=== PATIENT | female | born 1985 | race American Indian/Alaskan Native ===

== ENCOUNTER 2018-04-03 21:21 | Emergency (ER) | payer SELFPAY ==
[2018-04-03 21:47] VITALS: BP 112/73
--- NOTE | 2018-04-03 22:29 | XRay Report ---
FINAL REPORT EXAM: XR ANKLE 2V LT HISTORY: fall/L Ankle swollen painful TECHNIQUE: Frontal and lateral views left ankle FINDINGS: There is no evidence of fracture or subluxation on two views provided. There is soft tissue swelling on the lateral and anterior aspect of the ankle. IMPRESSION: 1. Soft tissue swelling without evidence of fracture or subluxation.
== END 2018-04-04 01:31 | disposition left against medical advice (07) ==
LOC: ED 21:21
DX: M25.572 Pain in left ankle and joints of left foot (principal); Z53.21 Procedure and treatment not carried out due to patient leaving prior to being seen by health care provider

== ENCOUNTER 2018-11-12 09:18 | Emergency (ER) | payer MEDICAID ==
[2018-11-12] MEDS ORDERED: ASPIRIN PO ONE (09:46)
--- NOTE | 2018-11-12 10:22 | XRay Report ---
AP CHEST: HISTORY: chest pain AP view of the chest demonstrates a normal mediastinal and cardiac contour with clear lungs and normal bony and soft tissue structures. IMPRESSION: Unremarkable AP chest.
[2018-11-12 10:24] LABS: Basophils # (Auto) 0.1 K/mm3 (0.0-0.1); Basophils % (Auto) 0.6 % (0.0-1.8); Eosinophils # (Auto) 0.3 K/mm3 (0.0-0.4); Eosinophils % (Auto) 2.9 % (0.0-4.3); Hematocrit 44.6 % (30.3-42.9); Hemoglobin 14.9 gm/dl (10.1-14.3); Lymphocytes # (Auto) 2.5 K/mm3 (1.2-5.4); Lymphocytes % (Auto) 24.9 % (13.4-35.0); Mean Corpuscular HGB Conc 34 % (30-34); Mean Corpuscular Volume 88 fl (79-97); Monocytes # (Auto) 0.7 K/mm3 (0.0-0.8); Monocytes % (Auto) 7.3 % (0.0-7.3); Platelet Count 228 K/mm3 (140-440); Red Blood Count 5.09 M/mm3 (3.65-5.03); Red Cell Distribution Width 14.6 % (13.2-15.2)
[2018-11-12 10:35] LABS: BUN/Creatinine Ratio 12; Blood Urea Nitrogen 6 mg/dL (7-17); Calcium 8.4 mg/dL (8.4-10.2); Hemolysis Index 70
[2018-11-12 11:10] VITALS: BP 110/72
--- NOTE | 2018-11-12 12:40 | Emergency Department Report ---
ED Chest Pain HPI - General Chief Complaint: Chest Pain Stated Complaint: CHEST PAIN/RT ARM/LFT ARM PAIN Time Seen by Provider: 11/12/18 09:55 Source: patient Mode of arrival: Ambulatory Limitations: No Limitations - History of Present Illness Initial Comments: Mrs. Spear is a healthy 33-year-old female with history of tachycardia status post cardiac ablation who presents with diffuse body aches over the last 3 weeks. Pain began entire upper back then muscle aches and joint pain. Today she felt a jolt across her chest lasting one to 2 seconds. Is concerned about her heart. Pain was brief. She denies any shortness of breath. Denies any fev er. She is symptom-free at this point. Does have a history of previous tachycardia. She does have a history of tobacco abuse. MD Complaint: chest pain -: Sudden Onset: during rest Pain Location: substernal Severity: mild Severity scale (0 -10): 6 Quality: sharp Consistency: now resolved Improves With: nothing Worsens With: nothing - Related Data Allergies Allergy/AdvReac Type Severity Reaction Status Date / Time No Known Allergies Allergy Unverified 04/03/18 21:47 Heart Score - HEART Score History: Slightly suspicious EKG: Normal Age: < 45 Risk factors: 1-2 risk factors Troponin: < normal limit HEART Score: 1 ED Review of Systems ROS: Stated complaint: CHEST PAIN/RT ARM/LFT ARM PAIN Other details as noted in HPI Comment: All other systems reviewed and negative Constitutional: denies: fever, malaise Respiratory: denies: cough Cardiovascular: chest pain ED Past Medical Hx - Past Medical History Previous Medical History?: No - Surgical History Past Surgical History?: Yes Additional Surgical History: Cardiac ablation 2016 - Social History Smoking Status: Current Every Day Smoker Substance Use Type: Alcohol ED Physical Exam - General Limitations: No Limitations General appearance: alert, in no apparent distress - Head Head exam: Present: atraumatic, normocephalic - Eye Eye exam: Present: normal appearance - ENT ENT exam: Present: mucous membranes moist - Neck Neck exam: Present: normal inspection, full ROM - Respiratory Respiratory exam: Present: normal lung sounds bilaterally. Absent: respiratory distress, wheezes, rales, rhonchi - Cardiovascular Cardiovascular Exam: Present: regular rate, normal rhythm, normal heart sounds. Absent: systolic murmur, diastolic murmur, rubs, gallop - GI/Abdominal GI/Abdominal exam: Present: soft, normal bowel sounds. Absent: distended, tenderness, guarding, rebound - Extremities Exam Extremities exam: Present: normal inspection - Back Exam Back exam: Present: normal inspection - Neurological Exam Neurological exam: Present: alert, oriented X3 - Psychiatric Psychiatric exam: Present: normal affect, normal mood - Skin Skin exam: Present: warm, dry, intact, normal color. Absent: rash ED Course Vital Signs 11/12/18 11/12/18 11/12/18 09:39 10:11 10:15 Temperature 98.2 F Pulse Rate 103 H 84 78 Respiratory 16 14 16 Rate Blood Pressure 110/72 Blood Pressure 161/107 [Left] O2 Sat by Pulse 98 98 98 Oximetry 11/12/18 11/12/18 11/12/18 10:30 10:45 11:01 Temperature Pulse Rate 71 76 69 Respiratory 19 15 13 Rate Blood Pressure 105/63 96/50 110/72 Blood Pressure [Left] O2 Sat by Pulse 98 97 100 Oximetry ED Medical Decision Making - Lab Data Result diagrams: 11/12/18 09:54 11/12/18 09:51 Laboratory Results - last 24 hr 11/12/18 11/12/18 09:51 09:54 WBC 9.9 RBC 5.09 H Hgb 14.9 H Hct 44.6 H MCV 88 MCH 29 MCHC 34 RDW 14.6 Plt Count 228 Lymph % (Auto) 24.9 Catron % (Auto) 7.3 Eos % (Auto) 2.9 Baso % (Auto) 0.6 Lymph # 2.5 Catron # 0.7 Eos # 0.3 Baso # 0.1 Seg Neutrophils % 64.3 Seg Neutrophils # 6.4 Sodium 135 L Potassium 4.3 Chloride 101.9 Carbon Dioxide 23 Anion Gap 14 BUN 6 L Creatinine 0.5 L Estimated GFR > 60 BUN/Creatinine Ratio 12 Glucose 109 H Calcium 8.4 Troponin T < 0.010 - EKG Data -: EKG Interpreted by Me EKG shows normal: sinus rhythm, axis, intervals, QRS complexes, ST-T waves Rate: normal - Medical Decision Making Mrs. Gross presents with chest pain brief, suspected ectopy such as PVC. No indication of pulmonary embolism. PERC Negative. EKG chest x-ray labs all within normal limits. Given reassurance. Strongly recommended cessation of smoking. Discharged home. Critical care attestation.: If time is entered above; I have spent that time in minutes in the direct care of this critically ill patient, excluding procedure time. ED Disposition Clinical Impression: Chest pain, Muscular aches Disposition: TO HOME OR SELFCARE Is pt being admited?: No Does the pt Need Aspirin: No Condition: Stable Instructions: Chest Pain (ED) Referrals: [facility] [Outside] - 3-5 Days
== END 2018-11-12 12:44 | disposition home or self-care (01) ==
LOC: ED 09:18
DX: R07.89 Other chest pain (principal); M79.18 Myalgia, other site; F17.200 Nicotine dependence, unspecified, uncomplicated
CPT/HCPCS: 36415; 71045; 80048; 84484; 85025; 93005; 93010

== ENCOUNTER 2020-02-01 12:08 | Emergency (ER) | payer SELFPAY ==
[2020-02-01 12:31] VITALS: BP 141/78
== END 2020-02-01 14:17 | disposition home or self-care (01) ==
LOC: ED 12:08
DX: N61.1 Abscess of the breast and nipple (principal); F17.200 Nicotine dependence, unspecified, uncomplicated
CPT/HCPCS: 99282

== ENCOUNTER 2020-02-03 18:32 | Emergency (ER) | payer SELFPAY ==
[2020-02-03 18:38] VITALS: BP 126/76
--- NOTE | 2020-02-03 18:51 | Emergency Department Report ---
Suture/Staple Removal - [facility] Chief Complaint: Skin/Abscess/Foreign Body Stated Complaint: WOUND ON BREAST Time Seen by Provider: 02/03/20 18:49 When Sutures or [place] Placed: 2 days ED Review of Systems ROS: Stated complaint: WOUND ON BREAST Other details as noted in HPI Constitutional: denies: chills, fever Eyes: denies: eye pain, eye discharge, vision change ENT: denies: ear pain, throat pain Respiratory: denies: cough, shortness of breath, wheezing Cardiovascular: denies: chest pain, palpitations Endocrine: no symptoms reported Gastrointestinal: denies: abdominal pain, nausea, diarrhea Genitourinary: denies: urgency, dysuria, discharge Musculoskeletal: denies: back pain, joint swelling, arthralgia Skin: denies: rash, lesions Neurological: denies: headache, weakness, paresthesias Psychiatric: denies: anxiety, depression Hematological/Lymphatic: denies: easy bleeding, easy bruising ED Past Medical Hx - Past Medical History Previous Medical History?: No - Surgical History Past Surgical History?: Yes Additional Surgical History: Cardiac ablation 2016 - Social History Smoking Status: Current Every Day Smoker Substance Use Type: Alcohol - Medications Home Medications: Home Medications Medication Instructions Recorded Confirmed Last Taken Type Acetaminophen/Codeine [Tylenol 1 tab PO Q6H PRN #7 tab 02/01/20 Unknown Rx /Codeine # 3 tab] Sulfamethoxazole/Trimethoprim 1 each PO BID 7 Days #14 tablet 02/01/20 Unknown Rx [Bactrim DS TAB] Suture Removal Exam - Exam General: Vital signs noted. No distress. Alert and acting appropriately. Wound: No Pathologic Erythema, No Tenderness, No Drainage, No Pus, No Wound Dehiscence Other Systems: All other systems reviewed and are unremarkable. ED Course Vital Signs 02/03/20 18:34 Temperature 98 F Pulse Rate 89 Respiratory 18 Rate Blood Pressure 126/76 O2 Sat by Pulse 97 Oximetry - Reevaluation(s) Reevaluation #1: 02/03/20 18:50 Patient is speaking in full sentences with no signs of distress noted. ED Recheck MDM - Medical Decision Making / packing has been removed from right breast. Patient tolerated well. Gayatri desir present during procedure. Well healing. No cellulitis or swelling. Educated on wound care. Patient was instructed to Follow-up with a primary care doctor in 3-5 days or if symptoms worsen and continue return to emergency room as soon as possible. At time of discharge, the patient does not seem toxic or ill in appearance. No acute signs of distress noted. Patient agrees to discharge treatment plan of care. No further questions noted by the patient. Critical care attestation.: If time is entered above; I have spent that time in minutes in the direct care of this critically ill patient, excluding procedure time. ED Disposition Clinical Impression: Abscess packing removal Disposition: DC- TO HOME OR SELFCARE Is pt being admited?: No Does the pt Need Aspirin: No Condition: Stable Instructions: Acute Wound Care (ED) Additional Instructions: Follow-up with a primary care doctor in 3-5 days or if symptoms worsen and continue return to emergency room as soon as possible. Referrals: PRIMARY [facility] [Referring] - 3-5 Days MARRY DUVAL MD [Staff Physician] - 3-5 Days Forms: Work/School Release Form(ED)
== END 2020-02-03 19:00 | disposition home or self-care (01) ==
LOC: ED 18:32
DX: S20.10 Unspecified superficial injuries of breast (principal); Z48.00 Encounter for change or removal of nonsurgical wound dressing; X58.XXXD Exposure to other specified factors, subsequent encounter